=== PATIENT | female | born 1965 | race Caucasian/White ===

== ENCOUNTER 2018-11-18 05:30 | Day surgery (SDC) | payer BC, OTHER ==
[2018-11-10 08:54] LABS: HEMATOCRIT 39.6 % (37.0-47.0); MCH 28.7 pg (26.0-34.0); MCHC 32.8 g/dL (28.0-37.0); MCV 87.4 fL (80.0-100.0); RBC 4.52 mil/uL (4.20-5.00); RDW 14.7 % (10.5-14.5); WBC 8.6 thou/uL (4.0-11.0)
[2018-11-10 09:00] LABS: ALBUMIN 3.7 g/dL (3.4-5.0); CREATININE 0.7 mg/dL (0.6-1.0); POTASSIUM 4.2 mmol/L (3.5-5.1)
[2018-11-10 09:19] LABS: URINE BILIRUBIN NEGATIVE (Negative); URINE BLOOD NEGATIVE (Negative); URINE CLARITY CLEAR; URINE COLOR YELLOW; URINE GLUCOSE-RANDOM* NEGATIVE (Negative); URINE KETONES NEGATIVE (Negative); URINE LEUKOCYTES-REFLEX NEGATIVE (Negative); URINE NITRITE-REFLEX NEGATIVE (Negative); URINE PROTEIN (DIPSTICK) NEGATIVE (Negative); URINE SPECIFIC GRAVITY 1.025 (1.005-1.035); URINE UROBILINOGEN 0.2 E.U./dl (0.2-1.0)
--- NOTE | 2018-11-10 09:25 | EKG ---
[place] [address] [employer] [place] [address] ELECTROCARDIOGRAM REPORT Name: MARK MICHAEL Room #: [facility] M..#: [id number] Admission: Attend Phys: Rodriguez Mims MD Discharge: Date of : 63 Report #: [id number] THIS REPORT FOR: //name// [facility] Test Date: 2018-11-10 Test Time: 08:47:16 Pat Name: MARK MICHAEL Department: Room: Gender: F [employer] Hand: mecca : 1965 Requested By: Rodriguez Mims Order Number: [id number] MD: Jarett Corrales Measurements Intervals [place] Rate: 56 P: 59 [place]: 191 QRS: 5 QRSD: 95 T: 21 QT: 429 QTc: 415 Interpretive Statements Sinus bradycardia Baseline wander in lead(s) III No previous ECG available for comparison Electronically Signed On 11-10-2018 9:25:23 SPEECH COMMUNICATION PROFESSOR by Jarett Corrales [email or web address] <ELECTRONICALLY SIGNED> By: Jarett Corrales MD, [facility] 11/10/18 0925 [id number] [id number] Jarett Corrales MD, FACC /EPI
[~2018-11-18] VITALS: Ht 172.7 cm; Wt 101.2 kg
[~2018-11-18 05:30] MED LIST: LIPITOR 20 MG T20 M1 PO; OXYCODONE HCL 55 MG PO; SYNTHROID112 MC1 PO; XANAX 0.5 MG0.5 MG PO
[2018-11-18 08:00] VITALS: BP 105/72
[2018-11-18 11:00] VITALS: BP 119/69
[2018-11-18] MEDS ORDERED: PERCOCET PO (14:02)
[2018-11-18] MEDS ORDERED: MS CONTIN15 MG PO (14:02)
[2018-11-18] MEDS ORDERED: NEURONTIN 300300 M1 PO (14:03)
[2018-11-18] MEDS ORDERED: TRI-BUFFERED A325 M1 PO (14:03)
[2018-11-18 16:38] VITALS: BP 105/41
[2018-11-18 17:14] VITALS: BP 105/41
--- NOTE | 2018-11-18 17:20 | NUR ---
PT RECEIVED POSTOP FROM [facility] RM ALERT AND IN NO ACUTE DISTRESS. PT HAD TOTAL KNEE REPLACEMENT. DSNG W/PROVENA DRY AND INTACT. WALKED W/ THERAPIST AND DID WELL USING WALKER. PT HAD IV ANCEF. TAKING FLUIDS AND SM BITES W/O NAUSEA. WANTING TO D/C HOME THIS EVENING. DISCHARGE COMPLETED. RX GIVEN TO BY PRIOR TO OR. PT DISCHARGED AT THIS TIME W/ ALL BELONGINGS.
--- NOTE | 2018-11-27 09:15 | O ---
[facility] [place] [address] OPERATIVE REPORT Name: MARK MICHAEL Room #: DEP [facility] M.R.#: [id number] Admission: 11/18/18 Attend Phys: Rodriguez Mims MD Discharge: 11/18/18 Date of : 63 Report #: [id number] THIS REPORT FOR: //name// CC: Jimy Mims DATE OF SERVICE: 11/18/2018 PREOPERATIVE DIAGNOSIS: Right knee psoriatic arthritis. POSTOPERATIVE DIAGNOSIS: Right knee psoriatic arthritis. PROCEDURE: Right total knee arthroplasty using Navio robotic assistance. SURGEON: Rodriguez Mims M.D. MANAGER [employer] INSURANCE: Елена Cooper PA-C. INDICATION FOR MANAGER LIFE INSURANCE: Throughout the case, extensive retraction and manipulation of the knee was required. This was afforded to me by my executive administrative assistant. ANESTHESIA: LMA with an adductor canal block. IMPLANTS: [employer] size 6 Journey Oxinium BCS femur, a size 4 tibia, size 12 polyethylene and size 32 patella. TOURNIQUET TIME: 69 minutes. ESTIMATED BLOOD LOSS: 25 mL. COMPLICATIONS: None. SPECIMENS: None. CONDITION UPON LEAVING THE OPERATING ROOM: Stable. INDICATIONS FOR PROCEDURE: The patient is a 53-year-old female with right knee psoriatic arthritis. She had failed conservative measures for this and after discussion with her, she elected for right total knee arthroplasty. DESCRIPTION OF PROCEDURE: Risks, benefits, alternatives and complications were discussed in detail with the patient, including but not limited to risk of anesthesia; risk of damage to nerves, arteries or blood vessels; risk for infection or bleeding; risk for continued knee pain and need for re-operation. Informed consent was obtained from the patient. Right knee was appropriately marked in the preoperative holding area. IV Ancef was given for preoperative [address] [address] OPERATIVE REPORT Name: ALECMARK Room #: DEP [facility] M.R.#: [id number] Admission: 11/18/18 Attend Phys: Rodriguez Mims MD Discharge: 11/18/18 Date of : 63 Report #: [id number] antibiotics. Adductor canal block was placed by Anesthesia. She was brought to the operating room and placed in supine position on the operating room table. LMA anesthesia was induced without complication. Tourniquet was placed on the right thigh. Right lower extremity was prepped and draped in a normal sterile fashion. Timeout was performed properly identifying the patient, procedure as well as instrumentation. All in the operating room were in agreement. Right lower extremity was exsanguinated and tourniquet was inflated. Tourniquet time was 69 minutes. Standard midline approach to the knee was made with a 10 blade through the skin. Dissection was taken down sharply to the fascia and deep flaps were developed medially and laterally. Fresh 10 blade was used to make a medial parapatellar arthrotomy and there was thick cloudy synovial fluid. There was significant hypertrophy of the synovium, consistent with autoimmune-type arthritis. ACL and PCL were removed sharply. Reference pins were placed in the femur and the tibia and the knee was mapped digitally using the [employer] robotic system. After this intraoperative plan was made, we sized a size 6 femur and a size 4 tibia. After acceptance of the intraoperative plan, the distal femoral cut was made with the Navio bur. The size 6 cutting block was then placed on the femur and the femoral cuts were made. Attention was then turned to the tibia. The knee was flexed and tibia was subluxed anteriorly. Tibial resection guide was placed using the Navio robotic system and tibial resection was made. After this, flexion and extension gaps were checked and found to have good balance in flexion and extension, both medially and laterally. The tibia was sized, found to be a size 4. Size 4 tibial trial was placed, pinned and punched. A size 6 femoral trial was placed and box cut was made. This was then trialed with a size 10, and a size 11 and then a size 12 polyethylene. A size 12 polyethylene had the best fit with 1 mm of laxity medially and laterally throughout range of motion both manually as well as digitally. After this, 9 mm was taken off the posterior surface of the patella and a size 32 patellar trial button was placed. Knee was taken through range of motion and found to be stable, found to have good patellar tracking. Trial components were removed. Bony ends were thoroughly irrigated with normal saline. A final size 4 tibia, size 6 Journey 2 BCS Oxinium femur and a size 32 patella were cemented in place using standard cementation techniques. While the cement cured, a periarticular injection consisting of morphine, ropivacaine, epinephrine and Toradol was placed around the joint capsule. After the cement cured, tourniquet was deflated. Hemostasis was obtained with Bovie cautery. A final size 12 polyethylene was placed. A gram of vancomycin was placed deep in the joint. Fascia was closed with 0 Vicryl, skin was closed with 2-0 Vicryl and 3-0 Monocryl. Dermabond and a LAMBERTO dressing were applied. The patient [address] [address] OPERATIVE REPORT Name: MARK MICHAEL Joseluis Room #: DEP [facility] MLeena.#: [id number] Admission: 11/18/18 Attend Phys: Rodriguez Mims MD Discharge: 11/18/18 Date of : 63 Report #: [id number] tolerated this procedure well and went to the recovery room under the care of anesthesia postoperatively. <ELECTRONICALLY SIGNED> By: Rodriguez Mims MD 11/27/18 0915 0943 1034 Rodriguez Mims MD /nt
== END 2018-11-18 18:51 | disposition home or self-care (01) ==
LOC: TBA 05:30 → OR 05:30 → 4E 11:06 → OR 14:04
PROVIDERS: Orthopaedic Surgery
DX: L40.52 Psoriatic arthritis mutilans (principal); E78.5 Hyperlipidemia, unspecified; F41.9 Anxiety disorder, unspecified; E03.9 Hypothyroidism, unspecified; K21.9 Gastro-esophageal reflux disease without esophagitis; Z88.8 Allergy status to other drugs, medicaments and biological substances; Z79.899 Other long term (current) drug therapy; Z87.442 Personal history of urinary calculi; Z90.49 Acquired absence of other specified parts of digestive tract; Z79.891 Long term (current) use of opiate analgesic; Z79.01 Long term (current) use of anticoagulants; Z96.652 Presence of left artificial knee joint
CPT/HCPCS: 10783; 50010; 50101; 50415; 50954; 51130; 51225; 53000; 53078; 54118; 55372; 56527; 56528; 57095; 57103; 57109; 57110; 57113; 57127; 62110; 62900; 70005